=== PATIENT | male | born 1940 | race African-American/Black ===

== ENCOUNTER 2024-04-01 14:22 | Emergency (ER) | payer OTHER ==
--- OUTSIDE RECORDS SUMMARY | 2024-04-01 14:26 | XMS REPORT | Continuity of Care Document ---
Author Name Unknown Address [address] [place] [address] [facility] thconnect Address [address] [place] [address] Care Team Providers Care Project Director Name Role Phone Pcp, Patient Does Not Have A Primary Care Physic lucille Campaigns, Generic Provider Attending Clinician Unavailable Eun Faye DO Attending Clinician [phone] EUN FAYE Attending Clinician Unavailab EUN Coleman Admitting Clinician Unavailab lauren Payers Payer Name Policy Type Policy Number Effective Date Expirati on Date Source Allergies, Adverse Reactions, Alerts Allergy Name Allergy Type Status Severity Reaction(s) Onset Date Inactive Date Treating Clinician Comments Source NO KNOWN ALLERGIE S Drug Class Active [facility] Social History Social Habit Start Date Stop Date Quantity Comments Source Sexual orientation U [facility] Sex Assigned At 1940 00:00:00 1940 00:00:00 [facility] Smoking Status Start Date Stop Date Source Tobacco smoking consumption unknown [facility] Medications Ordered Medication Name Filled Medication Name Start Date Stop Date Current Medication? Ordering Clinician Indication Dosage Frequency Signature (SIG) Comments Components Source iopamidol (ISOVUE 370-500 mL) injection 85 mL 09-01 19:00: 00 09-01 19:00 :00 No [id number] 85mL 85 mL, Intravenou s, ONCE, 1 dose, On Sat09/02/23 at 1400, Routine [facility] moxifloxaci n 400 mg tablet 09-01 00:00: 00 09-07 04:59 :00 No [id number] 400mg Take 1 tablet by mouth in the morning for 5 days. [facility] Vital Signs Vital Name Observation Time Observation Value Jordy mccann Systolic blood pressure 2023-09-02 19:30:00 203 mm[Hg] [facility] Diastolic blood pressure 2023-09-02 19:30:00 85 mm[Hg] [facility] Heart rate 2023-09-02 19:30:00 88 /min [facility] Respiratory rate 2023-09-02 19:30:00 13 /min [facility] Oxygen saturation in Arterial blood by Pulse oximetry 2023-09-02 19:30:00 98 /min [facility] Body temperature 2023-09-02 16:12:00 36.61 Pat [facility] Procedures Procedure Date / Time Performed Performing Clinicia n Source CT THORAX W CONTRAST 2023-09-02 18:05:53 Jorge Faye [facility] COMP. METABOLIC PANEL (81916) 2023-09-02 16:54:00 Eun Faye [facility] CBC WITH DIFF 2023-09-02 16:54:00 Eun Faye [facility] NOTICE OF PRIVACY PRACTICES 2023-09-02 16:04:29 Doctor Unassigned, [place] [facility] CONSENT/REFUSAL FOR DIAGNOSIS AND TREATMENT 2023-09-02 16:02:54 Doctor Unassigned, [place] [facility] Encounters Start Date/Time End Date/Time Encounter Type Admission Type Attending Clinicians Care Facility Care Department Encounter ID Source 2023-09-11 00:00:00 2023-09-11 00:00:00 Letter (Out) Campaigns, Generic Provider [facility] 1..114 [id number] [facility] 2023-09-02 11:13:00 2023-09-02 14:38:00 Emergency Eun Faye [facility] [id number] [facility] 2023-09-02 11:13:00 2023-09-02 14:38:00 Emergency X EUN FAYE [facility] ERT [id number] [facility] Results Test Description Test Time Test Comments Results Result Comments Source CT THORAX W CONTRAST 19:09:34 ORDERING PHYSICIAN: EUN FAYE. HISTORY: hoarse and trouble swallowing. ?eval for mass TECHNIQUE: CT chest with intravenous contrast. ?CT was performed accordingto ALARA (As Low As Reasonably Achievable). COMPARISON: None. FINDINGS: Great Vessels: No aneurysm is present. There is diffuse moderateatherosclerotic vascular plaque Heart: Heart is borderline prominent in size. Severe coronary arterialcalcifications are present. There is no pericardial effusion. Lymphadenopathy: No pathologically enlarged mediastinal, hilar, or axillarylymph nodes. Lungs: There is moderate consolidation within the posterior and lateralbasal segments of the right lower lobe (image 76/4). The left lung isgrossly clear. Airways: Airways are clear. ?No bronchiectasis. Pleura: No pneumothorax or pleural effusion. Other: The thyroid enhances homogeneously. Visualized abdomen: Adrenal glands are normal. Osseous Structures: No suspicious lesions are identified. There is [facility]gynecomastia. [id number] 17:10:16* Test Item Value Reference Range Interpretation Comme nts WBC (test code = 6690-2) 9.27 4.20-10.70 RBC (test code = 789-8) 3.89 4.26-5.52 L HGB (test code = 718-7) 10.8 g/dL 12.2-16.4 L HCT (test code = 4544-3) 33.9 % 38.4-49.3 L MCV (test code = 787-2) 87.1 fL 81.7-95.6 MCH (test code = 785-6) 27.8 pg 26.1-32.7 MCHC (test code = 786-4) 31.9 g/dL 31.2-35.0 RDW-SD (test code = 42623-5) 49.3 fL 38.5-51.6 RDW-CV (test code = 788-0) 15.4 % 12.1-15.4 PLT (test code = 777-3) 134 150-328 L MPV (test code = 10998-5) 12.3 fL 9.8-13.0 NRBC/100 WBC (test code = 1973798369) 0.0 0.0-10.0 NRBC x10^3 (test code = 9203194134) See_Comment [Automated messa ge] The system which generated this result transmitted reference range: 10*3/?L. The reference range was not used to interpret this result as normal/abnormal. GRAN MAT (NEUT) % (test code = 770-8) 77.1 % IMM GRAN % (test code = 8239835959) 0.40 % LYMPH % (test code = 736-9) 14.1 % MONO % (test code = 5905-5) 6.9 % EOS % (test code = 713-8) 1.3 % BASO % (test code = 706-2) 0.2 % GRAN MAT x10^3(ANC) (test code = 0551494248) 7.14 10*3/uL 1.99-6.95 H IMM GRAN x10^3 (test code = 1920007963) 0.04 10*3/uL 0.00-0.06 LYMPH x10^3 (test code = 731-0) 1.31 10*3/uL 1.09-3.23 MONO x10^3 (test code = 742-7) 0.64 10*3/uL 0.36-1.02 EOS x10^3 (test code = 711-2) 0.12 10*3/uL 0.06-0.53 BASO x10^3 (test code = 704-7) 0.01-0.09 Lab Interpretation (test code = 81875-7) Abnormal [facility] Notes Date/Time Note Provider Source 2023-09-02 14:37:45 PT D/C home. GCS15, VS stable. Given D/C paperwork. Pt taken by w/c at time of discharge. Pt educated on med usage, follow up care, s/s worsening condition, need for hydration. Pt verbalized understanding. Pt taken to waiting room per request to await his sons arrival for transport home. Carlie Guthrie RN [facility] 2023-09-02 12:40:34 Error [facility] 2023-09-02 11:08:58 [place] [facility] [place] [facility] with difficulty swallowing, left AMA on Saturday because "they couldn't figure out what the problem was." Pt able to swallow saliva and tolerates soft food well, unable to tolerate solid foods. States that he had a tube put in his nose [place] the [facility] to take pictures. Pt's HR in triage 35-90, reports history of "irregular heart rate". [facility] 2023-09-02 11:03:00 [facility] Emergency Department Note Patient Name: Ulysses Jean Date of : 1940 83 year old male Treatment Room: [facility] Primary Care Physician: No primary care provider on file. 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 History of Present Illness: The patient presents from home for evaluation for trouble with swallowing over the past 1 week. He also complains of hoarseness. He reports is able to take in solids as well as soft foods but not hard foods like meat. No chest pain or pressure. No shortness of breath. He reports he [facility] the [facility] but they "did nothing for me". Therefore he decided to come here for evaluation. He is a former smoker. He is able to control his secretions and swallow them. Here for evaluation. Past Medical History/Immunizations: No past medical history on file. Tetanus received in last 5 years: Unknown Allergies: No Known Allergies Past Social History: Substance & Sexual Activity No substance use or sexual activity history on file. Past Surgical History: No past surgical history on file. Review of Systems: Review of Systems Constitutional: Negative for chills and fever. Respiratory: Negative for cough and shortness of breath. Cardiovascular: Negative for chest pain. Gastrointestinal: Negative for abdominal pain and vomiting. Genitourinary: Negative for dysuria. Musculoskeletal: Negative for arthralgias, neck pain and neck stiffness. Skin: Negative for wound. Neurological: Negative for dizziness. Psychiatric/Behavioral: Negative for agitation. Endocrine: Negative for goiter. Physical Exam: ED Triage Vitals [09/02/23 1112] Weight Actual or estimated Estimated by patient/family report Height BP (!) 189/78 Pulse 90 Resp 20 Temp 36.6 ?C (97.9 ?F) Temp source Oral SpO2 100 % Measured on Room air Physical Exam Vitals and nursing note reviewed. Constitutional: Appearance: Normal appearance. HENT: Head: Normocephalic and atraumatic. Cardiovascular: Rate and Rhythm: Normal rate. Pulses: Normal pulses. Pulmonary: Effort: Pulmonary effort is normal. No respiratory distress. Abdominal: General: There is no distension. Palpations: Abdomen is soft. Tenderness: There is no abdominal tenderness. There is no guarding. Musculoskeletal: General: Normal range of motion. Cervical back: Neck supple. Skin: General: Skin is warm. Neurological: General: No focal deficit present. Mental Status: He is alert and oriented to person, place, and time. Radiology: CT THORAX W CONTRAST Final Result ORDERING PHYSICIAN: EUN FAYE. HISTORY: hoarse and trouble swallowing. eval for mass TECHNIQUE: CT chest with intravenous contrast. CT was performed according to ALARA (As Low As Reasonably Achievable). COMPARISON: None. FINDINGS: Great Vessels: No aneurysm is present. There is diffuse moderate atherosclerotic vascular plaque Heart: Heart is borderline prominent in size. Severe coronary arterial calcifications are present. There is no pericardial effusion. Lymphadenopathy: No pathologically enlarged mediastinal, hilar, or axillary lymph nodes. Lungs: There is moderate consolidation within the posterior and lateral basal segments of the right lower lobe (image 76/4). The left lung is grossly clear. Airways: Airways are clear. No bronchiectasis. Pleura: No pneumothorax or pleural effusion. Other: The thyroid enhances homogeneously. Visualized abdomen: Adrenal glands are normal. Osseous Structures: No suspicious lesions are identified. There is mild gynecomastia. IMPRESSION Mild/moderate right lower lobe pneumonia and/or aspiration pneumonitis. No concerning mass. End of report. Lab Results: Lab Results CBC WITH DIFF - Abnormal Result Value Ref Range WBC 9.27 4.20 - 10.70 10*3/?L RBC 3.89 (*) 4.26 - 5.52 10*6/?L HGB 10.8 (*) 12.2 - 16.4 g/dL HCT 33.9 (*) 38.4 - 49.3 % MCV 87.1 81.7 - 95.6 fL MCH 27.8 26.1 - 32.7 pg MCHC 31.9 31.2 - 35.0 g/dL RDW-SD 49.3 38.5 - 51.6 fL RDW-CV 15.4 12.1 - 15.4 % PLT 134 (*) 150 - 328 10*3/?L MPV 12.3 9.8 - 13.0 fL NRBC/100 WBC 0.0 0.0 - 10.0 /100 WBCs NRBC x10 3 <0.01 10*3/?L GRAN MAT (NEUT) % 77.1 % IMM GRAN % 0.40 % LYMPH % 14.1 % MONO % 6.9 % EOS % 1.3 % BASO % 0.2 % GRAN MAT x10 3 (ANC) 7.14 (*) 1.99 - 6.95 10*3/uL IMM GRAN x10 3 0.04 0.00 - 0.06 10*3/uL LYMPH x10 3 1.31 1.09 - 3.23 10*3/uL MONO x10 3 0.64 0.36 - 1.02 10*3/uL EOS x10 3 0.12 0.06 - 0.53 10*3/uL BASO x10 3 <0.03 0.01 - 0.09 10*3/uL COMP. METABOLIC PANEL (27920) - Abnormal NA 140 135 - 145 mmol/L K 3.9 3.5 - 5.0 mmol/L CL 109 (*) 98 - 108 mmol/L CO2 TOTAL 22 (*) 23 - 31 mmol/L AGAP 9 2 - 16 BUN 25 (*) 7 - 23 mg/dL GLUCOSE 92 70 - 110 mg/dL CREATININE 1.34 (*) 0.60 - 1.25 mg/dL TOTAL BILI 1.3 (*) 0.1 - 1.1 mg/dL CALCIUM 9.5 8.6 - 10.6 mg/dL T PROTEIN 7.8 6.3 - 8.2 g/dL ALBUMIN 4.1 3.5 - 5.0 g/dL ALK PHOS 93 34 - 122 U/L ALTv 18 5 - 50 U/L AST(SGOT) 45 (*) 13 - 40 U/L eGFR 52.6 mL/min/1.73m2 EKG: If EKG completed, see Procedure Note. Orders and Treatments: Orders Placed This Encounter Procedures CT THORAX W CONTRAST CBC WITH DIFF COMP. METABOLIC PANEL (23945) Orders Placed This Encounter Medications iopamidol (ISOVUE 370-500 mL) injection 85 mL moxifloxacin 400 mg tablet First Provider Eval: ED Events Date/Time Event User Comments 09/02/23 1150 Medical Screening Begins EUN FAYE DO -- 09/02/23 1150 First Provider Evaluation EUN FAYE DO -- ED COURSE Diagnosis/Impression as of 09/02/23 1428 Hoarseness of voice Dysphagia, unspecified type Pneumonia of right lower lobe due to infectious organism Procedures: Procedures MDM: Medical Decision Making The patient presents from home for evaluation for difficulty with swallowing for the past 1 week. He also complains of hoarseness. He reports he is able to control his secretions including saliva as well as fluids and very soft foods. He reports solid foods like meat he is unable to swallow. He is a former smoker. [facility] so he left. Vital signs are stable in the ER. His lungs are clear bilaterally. His airway is patent. He does have a hoarse voice. Will obtain a CT of his chest and neck to evaluate possible tumor or mass been causing his symptoms. Final disposition pending. 1426 - the patient is doing well here in the ER. His laboratory studies are unremarkable. The CT of his chest shows a right lower lobe pneumonia but no tumor or mass causing his symptoms. Will treat the patient antibiotics. Recommend he follow-up with GI physician as an outpatient for possible scope to determine the cause of his difficulty with swallowing. He remained stable here in the ER and is okay for discharge home with PCP follow-up. Problems Addressed: Dysphagia, unspecified type: acute illness or injury Hoarseness of voice: acute illness or injury Pneumonia of right lower lobe due to infectious organism: acute illness or injury Amount and/or Complexity of Data Reviewed Labs: ordered. Decision-making details documented in ED Course. Radiology: ordered and independent interpretation performed. Decision-making details documented in ED Course. Risk Prescription drug management. Flowsheet Documentation: Scoring Tools: No data recorded Disposition/Condition: ED Disposition ED Disposition Disch - Home Condition Stable Comment -- Discharge Medications: Patient's Medications START taking these medications MOXIFLOXACIN 400 MG TABLET Take 1 tablet by mouth in the morning for 5 days. CONTINUE taking these medications which have NOT CHANGED No medications on file START taking Modified Medications as Prescribed No medications on file STOP taking these medications No medications on file Follow-up: Contact information for follow-up Pcp, Patient Does Not Have A Relationship: PCP - General [address] [place] [id number] Electronically signed by: Eun Faye DO 09/02/23 1428 T [facility]
[2024-04-01 15:06] LABS: Absolute Eosinophils 0.2 K/uL (0-0.5); Absolute Lymphocytes (CBC) 0.7 K/uL (0.7-4.9); Absolute Monocytes 0.5 K/uL (0.1-1.3); Absolute Neutrophil 6.4 K/uL (1.8-8.0); Basophils % 0.5 % (0-1.3); Eosinophils % 2.6 % (0-4.4); Hematocrit 20.3 % (39.6-49.0); Hemoglobin 6.7 g/dL (13.6-17.9); Lymphocytes % 8.6 % (15.3-44.8); MCH 27.5 pg (27.0-35.0); MCHC 33.1 g/dL (32.0-36.0); MPV 9.6 fL (7.6-11.3); Monocytes % 6.2 % (3.3-12.3); Neutrophils % 82.1 % (41.7-73.7); Nucleated Red Blood Cells % 0.1 % (0-0); Platelets 205 thou/uL (152-406); RBC Red Blood Cell Count 2.45 M/uL (4.33-5.43); Red Cell Distribution Width 16.5 % (12.1-15.2)
[2024-04-01 15:14] LABS: Anion Gap 10.5 mEq/L (5.0-15.0); Potassium 4.5 mEq/L (3.5-5.1); Troponin High Sensitivity 21.6 pg/mL (<58.9)
[2024-04-01 15:43] LABS: PT Prothrombin Time 14.4 SECONDS (9.4-12.5); PTT, Activated Partial Thromb 36.5 SECONDS (24.3-36.9); Protime INR 1.3
[2024-04-01] MEDS ORDERED: NA CHLORIDE 0.9% 250 ML ONE (15:48)
--- NOTE | 2024-04-01 18:19 | ER ---
Nurse's Notes [facility] Name: Ulysses Ashley Age: 83 yrs Sex: Male : 1940 Arrival Date: 04/01/2024 Time: 14:22 Bed 13 Private MD: Diagnosis: Anemia, unspecified Presentation: 04/01 14:50 Chief complaint: [facility] states[facility]. Denies ll1 weakness, fatigue. No N/V/D or fever. Coronavirus screen: Client denies travel out of the [place] in the last 14 days. At this time, the client does not indicate any symptoms associated with coronavirus-19. Ebola Screen: Patient denies travel to an Ebola-affected area in the 21 days before illness onset. Initial Sepsis Screen: Does the patient meet any 2 criteria? No. Patient's initial sepsis screen is negative. Does the patient have a suspected source of infection? No. Patient's initial sepsis screen is negative. Risk Assessment: Do you want to hurt yourself or someone else? Patient reports no desire to harm self or others. Onset of symptoms was April 01, 2024. 14:50 Method Of Arrival: Wheelchair ll1 14:50 Acuity: DONA 3 ll1 Triage Assessment: 14:50 General: Appears in no apparent distress. Behavior is calm, cooperative, appropriate ll1 for age, Reports needing a blood transfusion Denies fatigue. Neuro: No deficits noted. Cardiovascular: No deficits noted. Historical: - Allergies: 14:50 No Known Allergies; ll1 - PMHx: 14:50 Hypertensive disorder; ll1 14:54 Hypercholesterolemia; ll1 - PSHx: 14:54 stent in both legs; ll1 - Immunization history:: Adult Immunizations up to date. - Infectious Disease History:: Denies. - Social history:: Smoking status: Patient denies any tobacco usage or history of. Screenin:02 [facility] ED Fall Risk Assessment (Adult) History of falling in the last 3 months, mb9 including since admission No falls in past 3 months (0 pts) Confusion or Disorientation No (0 pts) Intoxicated or Sedated No (0 pts) Impaired Gait No (0 pts) Mobility Assist Device Used No (0 pt) Altered Elimination No (0 pt) Score/Fall Risk Level 0 - 2 = Low Risk Oriented to surroundings, Maintained a safe environment, Educated pt \T\ family on fall prevention, incl call for assistance when getting out of bed. Abuse screen: Denies threats or abuse. Nutritional screening: No deficits noted. Tuberculosis screening: No symptoms or risk factors identified. Assessment: 15:00 General: Appears in no apparent distress. Behavior is calm, cooperative. Pain: Denies mb9 pain. Neuro: Wynn Agitation-Sedation Scale (RASS): 0 - Alert and Calm Level of Consciousness is awake, alert, obeys commands, Oriented to person, place, time, situation, Appropriate for age. Cardiovascular: Patient's skin is warm and dry. Respiratory: Airway is patent Respiratory effort is even, unlabored, Respiratory pattern is regular, symmetrical, Breath sounds are clear bilaterally. GI: Abdomen is round non-distended, Bowel sounds present X 4 quads. GI: Patient currently denies bloody stool. : No signs and/or symptoms were reported regarding the genitourinary system. EENT: No signs and/or symptoms were reported regarding the EENT system. Derm: Skin is pink, warm \T\ dry. Musculoskeletal: Range of motion: intact in all extremities. 16:04 Reassessment: No changes from previously documented assessment. Patient and/or family mb9 updated on plan of care and expected duration. Pain level reassessed. Patient is alert, oriented x 3, equal unlabored respirations, skin warm/dry/pink. 16:45 Reassessment: Administration for 1st unit of RBC started. See transfusion record sheet mb9 for further information. 17:30 Reassessment: No changes from previously documented assessment. Patient and/or family mb9 updated on plan of care and expected duration. Pain level reassessed. Patient is alert, oriented x 3, equal unlabored respirations, skin warm/dry/pink. 18:19 Reassessment: D/C pending completion of unit of RBCs. mb9 18:42 Reassessment: No changes from previously documented assessment. Patient and/or family mb9 updated on plan of care and expected duration. Pain level reassessed. Patient is alert, oriented x 3, equal unlabored respirations, skin warm/dry/pink. Vital Signs: 14:50 BP 150 / 56; Pulse 72; Resp 18; Temp 97.3; Pulse Ox 97% on R/A; Weight 95.25 kg; Height ll1 6 ft. 1 in. ; Pain 0/10; 16:03 BP 127 / 50; Pulse 68; Resp 16; Pulse Ox 97% on R/A; mb9 16:45 BP 134 / 52; Pulse 70; Resp 16; Temp 97.8; Pulse Ox 97% on R/A; mb9 16:50 BP 147 / 57; Pulse 69; Resp 16; Temp 97.7; Pulse Ox 98% on R/A; mb9 16:55 BP 149 / 56; Pulse 67; Resp 16; Temp 97.7; Pulse Ox 97% on R/A; mb9 17:00 BP 146 / 56; Pulse 67; Resp 16; Temp 97.7; Pulse Ox 99% on R/A; mb9 17:45 BP 150 / 57; Pulse 68; Resp 16; Temp 97.8; Pulse Ox 98% on R/A; mb9 18:42 BP 155 / 75; Pulse 65; Resp 18; Pulse Ox 100% on R/A; mb9 14:50 Body Mass Index 27.71 (95.25 kg, 185.42 cm) ll1 14:50 Pain Scale: Adult ll1 16:45 baseline for 1st unit of RBCs bailee ED Course: 14:26 Patient arrived in ED. mr 14:26 Nader Hardy MD is Attending Physician. ec2 14:33 Vanessa Ramos, RN is Primary Nurse. mb9 14:37 Arm band placed on Patient placed in an exam room, on a stretcher. ll1 14:52 Triage completed. ll1 15:00 Initial lab(s) drawn, by me, sent to lab. EKG done, by ED staff, reviewed by Nader Hardy MD. Inserted saline lock: 20 gauge in right forearm, using aseptic technique. Blood collected. Flushed with 10 mL NS. 15:02 Bed in low position. Call light in reach. Side rails up X 1. Adult w/ patient. Client bailee placed on continuous cardiac and pulse oximetry monitoring. NIBP monitoring applied. teletypesetter monitor on. 15:32 Served as a cage maker during rectal exam. cm10 15:46 Consent for blood and/or blood product transfusion explained by staff, explained by bailee physician, signed by patient. 16:03 Provided Education on: press call light if needing anything. Door closed. Noise mb9 minimized. Warm blanket given. Pillow given. 18:43 IV discontinued, intact, bleeding controlled, No redness/swelling at site. Pressure mb9 dressing applied. Administered Medications: No medications were administered Medication: 15:02 VIS not applicable for this client. mb9 Outcome: 18:18 Discharge ordered by . ec2 18:43 Discharged to home via wheelchair, with family, mb9 18:43 Condition: stable 18:43 Discharge instructions given to patient, Instructed on discharge instructions, follow up and referral plans. Demonstrated understanding of instructions, follow-up care, 18:43 Patient left the ED. mb9 Signatures: Vanessa Akers, Reg Reg mr Linette Meza, RN RN ll1 Vanessa Rmaos RN RN mb9 Jeannie Goetz RN RN cm10 Nader Hardy MD MD ec2 Corrections: (The following items were deleted from the chart) 15:33 15:02 No provider procedures requiring assistance completed. mb9 cm10
--- NOTE | 2024-04-01 18:19 | EDPHYS ---
Physician Documentation [facility] Name: Ulysses Ashley Age: 83 yrs Sex: Male : 1940 Arrival Date: 04/01/2024 Time: 14:22 Bed 13 Private MD: ED Physician Nader Hardy HPI: 04/01 14:59 This 83 yrs old Black Male presents to ER via Wheelchair with complaints of Abnormal ec2 Lab Results. 14:59 Patient arrives today for evaluation of anemia. Patient with slowly decreasing blood ec2 counts over several months. Patient reports no lightheadedness, no chest pain or difficulty breathing. Patient was told to come to the ED due to concern for anemia and requiring blood transfusion. . Historical: - Allergies: 14:50 No Known Allergies; ll1 - PMHx: 14:50 Hypertensive disorder; ll1 14:54 Hypercholesterolemia; ll1 - PSHx: 14:54 stent in both legs; ll1 - Immunization history:: Adult Immunizations up to date. - Infectious Disease History:: Denies. - Social history:: Smoking status: Patient denies any tobacco usage or history of. ROS: 14:59 Constitutional: as per hpi ec2 Exam: 14:59 Constitutional: GEN: NAD Head: atraumatic Eyes: EOMI Ears: External ears are ec2 normal. CV: regular rate LUNGS: no respiratory distress ABD: non-distended SKIN: no evidence of rashes MSK: no evidence of trauma Vital Signs: 14:50 BP 150 / 56; Pulse 72; Resp 18; Temp 97.3; Pulse Ox 97% on R/A; Weight 95.25 kg; Height ll1 6 ft. 1 in. ; Pain 0/10; 16:03 BP 127 / 50; Pulse 68; Resp 16; Pulse Ox 97% on R/A; mb9 16:45 BP 134 / 52; Pulse 70; Resp 16; Temp 97.8; Pulse Ox 97% on R/A; mb9 16:50 BP 147 / 57; Pulse 69; Resp 16; Temp 97.7; Pulse Ox 98% on R/A; mb9 16:55 BP 149 / 56; Pulse 67; Resp 16; Temp 97.7; Pulse Ox 97% on R/A; mb9 17:00 BP 146 / 56; Pulse 67; Resp 16; Temp 97.7; Pulse Ox 99% on R/A; mb9 17:45 BP 150 / 57; Pulse 68; Resp 16; Temp 97.8; Pulse Ox 98% on R/A; mb9 18:42 BP 155 / 75; Pulse 65; Resp 18; Pulse Ox 100% on R/A; mb9 14:50 Body Mass Index 27.71 (95.25 kg, 185.42 cm) ll1 14:50 Pain Scale: Adult ll1 16:45 baseline for 1st unit of RBCs mb9 MDM: 14:59 ED course: EKG independently reviewed and interpreted by me, shows normal sinus rhythm, ec2 rate of 68, no acute ST segment elevation, nonactionable intervals, right bundle branch block noted.. 14:59 Data reviewed: vital signs. ED course: Patient arrives today for evaluation of anemia. ec2 Examination remarkable for well-appearing nontoxic hemodynamically stable individuals otherwise in no acute distress. Will obtain lab work For evaluation of anemia. . 15:34 ED course: Digital rectal examination performed under nurse supervision, Jeannie, ec2 shows no melena, soft brown stool noted. Will transfuse unit of blood given the patient's anemia. Patient updated guarded plan of care and agreeable.. 18:18 Patient medically screened. ec2 04/01 14:31 Order name: Basic Metabolic Panel; Complete Time: 15:20 ec2 04/01 14:31 Order name: CBC with Diff; Complete Time: 15:20 ec2 04/01 14:31 Order name: Troponin HS; Complete Time: 15:20 ec2 04/01 14:31 Order name: Type And Screen ec2 04/01 15:23 Order name: Protime (+INR); Complete Time: 15:44 EDMS 04/01 15:23 Order name: PTT, Activated Partial Thromb; Complete Time: 15:44 EDMS 04/01 15:28 Order name: Packed RBC Leukored EDMS 04/01 15:36 Order name: Bb Add On bd 04/01 16:06 Order name: ABO/RH no charge; Complete Time: 18:19 EDMS 04/01 14:31 Order name: EKG; Complete Time: 14:31 ec2 04/01 14:31 Order name: Cardiac monitoring; Complete Time: 14:33 ec2 04/01 14:31 Order name: EKG - Nurse/Tech; Complete Time: 15:03 ec2 04/01 14:31 Order name: IV Saline Lock; Complete Time: 15:03 ec2 04/01 14:31 Order name: Labs collected and sent; Complete Time: 15:03 ec2 04/01 14:31 Order name: O2 Per Protocol; Complete Time: 14:33 ec2 04/01 14:31 Order name: O2 Sat Monitoring; Complete Time: 14:33 ec2 04/01 15:00 Order name: Labs - recollect needed: collect abo/rh no charge; Complete Time: 15:15 bd 04/01 15:21 Order name: Transfuse; Complete Time: 17:00 ec2 04/01 15:21 Order name: Consent for Blood Transfusion; Complete Time: 15:43 ec2 04/01 15:21 Order name: IV Saline Lock; Complete Time: 15:24 ec2 Administered Medications: No medications were administered Disposition Summary: 04/01/24 18:18 Discharge Ordered Notes: Location: Home ec2 Condition: Stable ec2 Diagnosis - Anemia, unspecified ec2 Followup: ec2 - With: Private Physician - When: - Reason: Re-evaluation by your physician Discharge Instructions: - Discharge Summary Sheet ec2 - Anemia ec2 - Blood Transfusion, Adult ec2 Forms: - Medication Reconciliation Form ec2 - Antibiotic Education ec2 - Prescription Opioid Use ec2 - Patient Portal Instructions ec2 - Leadership Thank You Letter ec2 Critical care time excluding procedures: 15:34 Critical care time: Bedside Care: 30 minutes. Total time: 30 minutes ec2 Signatures: Dispatcher [employer] EDDeedee Gambino Lynsay, RN RN ll1 Vanessa Ramos RN RN mb9 Nader Hardy MD MD ec2 Corrections: (The following items were deleted from the chart) 14:32 14:31 BASIC METABOLIC PANEL+C.LAB.BRZ ordered. EDMS EDMS 14:32 14:31 CBC+H.LAB.BRZ ordered. EDMS EDMS 14:32 14:31 Troponin High Sensitivity+C.LAB.BRZ ordered. EDMS EDMS 14:32 14:31 TYPE AND SCREEN+BB.LAB.BRZ ordered. EDVA EDMS 15:00 14:59 Patient arrives today for evaluation of anemia. Patient with slowly decreasing ec2 blood counts over several months. Patient reports no lightheadedness, no chest pain or difficulty breathing. . ec2 15: 15:22 PACKED RBC LEUKORED+BB.LAB.BRZ ordered. EDVA EDMS 15:24 ABO/RH typing ordered. EDVA EDMS 15:24 Antibody Screen ordered. EDVA EDMS 18:18 14:59 ED course: EKG independently reviewed and interpreted by me, shows normal sinus ec2 rhythm, rate of 68, no acute ST segment ovation's, nonactionable intervals, right bundle branch block noted.. ec2
[2024-04-01 20:06] VITALS: TEMP 97.8
[2024-04-01 20:08] VITALS: BP 155/75; O2SAT 100
--- NOTE | 2024-04-02 16:54 | EKG ---
Test Date: 2024-04-01 Test Time: 14:56:17 Food And Nutrition Professor: MB MEASUREMENT RESULTS: Intervals: Rate: 68 AR: 284 QRSD: 160 QT: 472 QTc: 501 [place]: P: 94 AR: 284 QRS: -46 T: 47 INTERPRETIVE STATEMENTS: Sinus rhythm with 1st degree AV block Right bundle branch block Left anterior fascicular block Bifascicular block Septal infarct, age undetermined Abnormal ECG No previous ECG available for comparison Electronically Signed On 04-02-24 16:50:26 CDT by Yinka Tam
== END 2024-04-01 18:43 | disposition home or self-care (01) ==
LOC: ER 14:22
PROC: 30233N1 Transfusion of Nonautologous Red Blood Cells into Peripheral Vein, Percutaneous Approach (ICD-10-PCS; principal; 2024-04-01)
DX: D64.9 Anemia, unspecified (principal)
CPT/HCPCS: 93005; 85025; 80048; 36415; 86900; 86850; 85610; 86901; 85730; 86920; 84484; 36430; P9016; J7050

== ENCOUNTER 2025-03-15 08:58 | Emergency (ER) | payer OTHER ==
--- OUTSIDE RECORDS SUMMARY | 2025-03-15 09:02 | XMS REPORT | Continuity of Care Document ---
Author Name Unknown Address [address] [facility] [address] [place] [address] [facility] Address [address] [facility] [place] [address] Care Team Providers Care Green Hide Inspector Name Role Phone DENNIS WASHINGTON Primary Care Physician Unavail able MICHAEL MAGANA Attending Clinician Unavailable MICHAEL MAGANA Attending Clinician Unavailable Michael Magana MD Attending Clinician [phone] [facility], [facility] Provider Attending Clinician Unavailable Eun Faye DO Attending Clinician [phone] EUN FAYE Attending Clinician Unavailab MICHAEL Aguilar Admitting Clinician Unavailable EUN FAYE Admitting Clinician Unavailab lauren Paysheila Payer Name Policy Type Policy Number Effective Date Expirati on Date Source [facility] [id number] 1999-05-16 00:00:00 Allergies, Adverse Reactions, Alerts Allergy Name Allergy Type Status Severity Reaction(s) Onset Date Inactive Date Treating Clinician Comments Source NO KNOWN ALLERGIE S Drug Class Active [facility] Social History Social Habit Start Date Stop Date Quantity Comments Source Sexual orientation [facility] Sex assigned at 1940 00:00:00 1940 00:00:00 [facility] Smoking Status Start Date Stop Date Source Tobacco smoking consumption unknown [facility] Medications Ordered Medication Name Filled Medication Name Start Date Stop Date Current Medication? Ordering Clinician Indication Dosage Frequency Signature (SIG) Comments Components Source pantoprazol e (PROTONIX) 80 mg in NaCl 0.9% (NS) 500 mL infusion 2023-06 20:15: 00 05-26 20:14 :00 No 8mg/h [Order 1 Start] Name: pantoprazo le (PROTONIX) 80 mg in NaCl 0.9% (NS) 500 mL infusion Signed Summary: 8 mg/hr (50 mL/hr), IV Infusion, CONTINUOUS , Starting on Sat05/25/24 at 1415, For 24 hours [Order 1 End] [Order 2 Start] Name: pantoprazo le (PROTONIX) injection 40 mg Signed Summary: 40 mg, Slow IV Push, Q12H, First dose on Sat05/26/24 at 2000, Until Discontinu ed, Routine [Order 2 End] [facility] ondansetron (ZOFRAN (PF)) injection 4 mg 2023-06 20:15: 00 05-25 19:14 :00 No 4mg 4 mg, Slow IV Push, ONCE, 1 dose, On Sat05/25/24 at 1415, 2 mL [facility] pantoprazol e (PROTONIX) 80 mg in NaCl 0.9% (NS) 20 mL syringe 2023-06 20:00: 00 05-25 19:44 :00 No 80mg 80 mg, IV Push, ONCE, 1 dose, On Sat05/25/24 at 1400, Administer over 2 Minutes, 20 mL [facility] morpHINE (4 mg/mL) injection 4 mg 2023-06 19:15: 00 05-25 19:15 :00 No 4mg 4 mg, Slow IV Push, ONCE, 1 dose, On Sat05/25/24 at 1315, STAT [facility] iopamidol (ISOVUE 370-500 mL) injection 85 mL 09-01 19:00: 00 09-01 19:00 :00 No [id number] 85mL 85 mL, Intravenou s, ONCE, 1 dose, On Sat09/02/23 at 1400, Routine [facility] moxifloxaci n 400 mg tablet 09-01 00:00: 00 09-07 04:59 :00 No [id number] 400mg Take 1 tablet by mouth in the morning for 5 days. [facility] Vital Signs Vital Name Observation Time Observation Value Comments S ource Body temperature 2024-05-26 04:24:00 36.44 Pat [facility] Systolic blood pressure 2024-05-26 04:00:00 136 mm[Hg] [facility] Diastolic blood pressure 2024-05-26 04:00:00 95 mm[Hg] [facility] Heart rate 2024-05-26 04:00:00 76 /min [facility] Respiratory rate 2024-05-26 04:00:00 22 /min [facility] Oxygen saturation in Arterial blood by Pulse oximetry 2024-05-26 04:00:00 100 /min [facility] Body height 2024-05-25 18:13:00 186.7 cm [facility] Body weight 2024-05-25 18:13:00 95.255 kg [facility] BMI 2024-05-25 18:13:00 27.33 kg/m2 [facility] Systolic blood pressure 2023-09-02 19:30:00 203 mm[Hg] [facility] Diastolic blood pressure 2023-09-02 19:30:00 85 mm[Hg] [facility] Heart rate 2023-09-02 19:30:00 88 /min [facility] Respiratory rate 2023-09-02 19:30:00 13 /min [facility] Oxygen saturation in Arterial blood by Pulse oximetry 2023-09-02 19:30:00 98 /min [facility] Body temperature 2023-09-02 16:12:00 36.61 Pat [facility] Procedures Procedure Date / Time Performed Performing Clinician Source CBC WITH DIFF 2024-05-26 02:40:00 Michael Magana [facility] DUPLEX ARTERIAL LEG RIGHT - BY VASCULAR LAB 2024-05-25 20:51:01 Michael Magana [facility] TRANSFUSE PACKED RBC 2024-05-25 20:20:00 Cesar Magana [facility] PREPARE PACKED RBC 2024-05-25 19:56:47 Michael Magana [facility] ABORH CONFIRMATION (LAB ONLY) 2024-05-25 19:02:00 Michael Magana [facility] TROPONIN I 2024-05-25 18:21:00 Michael Magana [facility] COMP. METABOLIC PANEL ([id number]) 2024-05-25 18:21:00 Michael Magana [facility] CBC WITH DIFF 2024-05-25 18:21:00 Michael Magana [facility] PROTHROMBIN TIME / INR 2024-05-25 18:21:00 Nino Magana [facility] ACTIVATED PARTIAL THRMPLAS CHIDI 2024-05-25 18:21:00 Michael Magana [facility] HB ABO GROUPING 2024-05-25 18:21:00 [facility] 2024-05-25 18:21:00 Michael Magana [facility] HB ECG ROUTINE & RHYTHM STRIP 2024-05-25 18:17:50 Michael Magana [facility] CT THORAX W CONTRAST 2023-09-02 18:05:53 Jorge Faye [facility] COMP. METABOLIC PANEL ([id number]) 2023-09-02 16:54:00 Eun Faye [facility] CBC WITH DIFF 2023-09-02 16:54:00 Eun Faye [facility] NOTICE OF PRIVACY PRACTICES 2023-09-02 16:04:29 Doctor Unassigned, [facility] [facility] CONSENT/REFUSAL FOR DIAGNOSIS AND TREATMENT 2023-09-02 16:02:54 Doctor Unassigned, [facility] Encounters Start Date/Time End Date/Time Encounter Type Admission Type Attending [facility] Care Facility Care Department Encounter ID Source 2024-05-25 12:10:00 2024-05-25 22:31:00 Emergency X MICHAEL MAGANA [facility] ERT [id number] [facility] 2024-05-25 12:10:00 2024-05-25 22:31:00 Emergency Michael Magana [facility] [id number] [facility] 2023-09-11 00:00:00 2023-09-11 00:00:00 Letter (Out) Campaigns, Generic Provider [facility] [id number] [facility] 2023-09-02 11:13:00 2023-09-02 14:38:00 Emergency Eun Faye [facility] [id number] [facility] 2023-09-02 11:13:00 2023-09-02 14:38:00 Emergency X EUN FAYE [facility] ERT [id number] [facility] Results Test Description Test Time Test Comments Results Result Co mments Source [facility] RBC (in units), 1 Units 2024-05-25 19:56:47* Test Item Value Reference Range Interpretation Comme nts Cross Match Result (test code = 4409) Compatible ISBT Blood Type Code (test code = 758135) 7300 Unit Blood Type (test code = 4410) B Pos Unit Number (test code = 4411) [id number] Blood Expiration Date & Time (test code = 386139) [id number] Status Information (test code = 4412) Issued Product Identification (test code = 4413) Red Blood Cells Product Code (test code = 4414) [id number] Performed at [facility] B Laboratory Services - [facility] Blood [address] [place] [id number] Free: [phone] No. [id number] [facility] Confirmation (Lab Only)2024-05-25 19:19:00* Test Item Value Reference Range Interpretation Comme nts ABO & RH (test code = 20) B Positive [facility] TH[facility] W [id number] 19:09:34 ORDERING PHYSICIAN: EUN FAYE. HISTORY: hoarse [...] lower lobe (image 76/4). The left lung isgros sly clear. Airways: Airways are clear. ?No bronchiectasis. Pleura: No pneumothorax or pleural effusion. Other: The thyroid enhances homogeneously. Visualized abdomen: Adrenal glands are normal. Osseous Structures: No suspicious lesions are identified. There is mildgynecomastia.[facility]. METABOLIC PANEL ([id number])2023-09-02 17:39:41* Test Item Value Reference Range Interpretation Comme nts NA (test code = 2565455849) 140 mmol/L 135-145 K (test code = 4679949869) 3.9 mmol/L 3.5-5.0 CL (test code = 6900411568) 109 mmol/L 98-108 H CO2 TOTAL (test code = 6610637323) 22 mmol/L 23-31 L AGAP (test code = 4789710449) 9 2-16 BUN (test code = 7936085476) 25 mg/dL 7-23 H GLUCOSE (test code = 8492943393) 92 mg/dL 70-110 CREATININE (test code = 2160-0) 1.34 mg/dL 0.60-1.25 H TOTAL BILI (test code = 8291313611) 1.3 mg/dL 0.1-1.1 H CALCIUM (test code = 0976109542) 9.5 mg/dL 8.6-10.6 T PROTEIN (test code = 7605932441) 7.8 g/dL 6.3-8.2 ALBUMIN (test code = 4040740499) 4.1 g/dL 3.5-5.0 ALK PHOS (test code = 5654793137) 93 U/L 34-122 ALTv (test code = 1742-6) 18 U/L 5-50 AST(SGOT) (test code = 4200228232) 45 U/L 13-40 H eGFR (test code = 12864-6) 52.6 mL/min/1.73m2 CKD-EPI eGFR (2020). Assuming creatinine has been stable day-to-day for at least three months, the eGFR indicates Category G3a (45 - 59 mL/min/1.73 m2) Lab Interpretation (test code = 49643-3) Abnormal [facility] WITH [id number] 17:10:16* Test Item Value Reference Range Interpretation [...] 31.9 g/dL 31.2-35.0 RDW-SD (test code = 96897-0) 49.3 fL 38.5-51.6 RDW-CV (test code = 788-0) 15.4 % 12.1-15.4 PLT (test code = 777-3) 134 150-328 L MPV (test code = 83470-3) 12.3 fL 9.8-13.0 NRBC/100 WBC (test code = 4145048149) 0.0 0.0-10.0 NRBC x10^3 (test code = 9010581319) See_Comment [Automated messa ge] The system which generated this result transmitted reference range: 10*3/?L. The reference range was not used to interpret this result as normal/abnormal. GRAN MAT (NEUT) % (test code = 770-8) 77.1 % IMM GRAN % (test code = 0874352587) 0.40 % LYMPH % (test code = 736-9) 14.1 % MONO % (test code = 5905-5) 6.9 % EOS % (test code = 713-8) 1.3 % BASO % (test code = 706-2) 0.2 % GRAN MAT x10^3(ANC) (test code = 6974553684) 7.14 10*3/uL 1.99-6.95 H IMM GRAN x10^3 (test code = 4898107756) 0.04 10*3/uL 0.00-0.06 LYMPH x10^3 (test code = 731-0) 1.31 10*3/uL 1.09-3.23 MONO x10^3 (test code = 742-7) 0.64 10*3/uL 0.36-1.02 EOS x10^3 (test code = 711-2) 0.12 10*3/uL 0.06-0.53 BASO x10^3 (test code = 704-7) 0.01-0.09 Lab Interpretation (test code = 32291-1) Abnormal [facility] Notes Date/Time Note Provider Source 2024-05-25 22:27:04 Patient transferred to [facility] ER for diagnosis of near syncope, KVNG, gastrointestinal hemorrhage with melena, and symptomatic anemia. Patient agrees to transfer/admit plan and verbalized understanding of plan of care. Patient awake alert, oriented, resp reg unlabored, skin w/d, bilateral PIVs patent, infusion rate verified with EMS. No adverse reaction to medications given while in ED. Report given to [facility] ambulance EMS personnel. IE Thomas RN [facility] 2024-05-25 21:37:05 Report called to ALYSSA Contreras from [facility] ER. Admitting/transfer diagnosis, lab results and imaging results reviewed, and infusion rate verified. [facility] 2024-05-25 19:03:00 Assumed care of patient, received report from ALYSSA Hernandez. Pt A&OX4, Respirations even & unlabored. Skin W&D and normal color, PIV intact and infusion rate verified. Call feliciano in reach, NAD noted at present. Pt denies any concerns at this time. Pt awaiting bed placement. [facility] 2024-05-25 19:00:17 Report given to ALYSSA Alexander [facility] 2024-05-25 17:47:26 Spoke with daughter of pt. [facility] recommended per her request. Pt daughter refused [place]. ER provider notified. [facility] 2024-05-25 12:10:47 PT was brought in by EMS via stretcher. Pt was called by [facility] this am stating he needed to come to ER due to anemia. PT states he was getting in shower and felt dizzy and pt was hypotensive. Pt vitals got better before arrival to ER. No medication given [employer] [facility] 2023-09-02 14:37:45 PT D/C home. GCS15, VS stable. Given D/C paperwork. Pt taken by w/c at time of discharge. Pt educated on med usage, follow up care, s/s worsening condition, need for hydration. Pt verbalized understanding. Pt taken to waiting room per request to await his sons arrival for transport home. Carlie Guthrie RN [facility] 2023-09-02 12:40:[address] [facility] 2023-09-02 11:08:58 Pt was admitted to the [facility] last week with difficulty swallowing, left AMA on Saturday because "they couldn't figure out what the problem was." Pt able to swallow saliva and tolerates soft food well, unable to tolerate solid foods. States that he had a tube put in his nose at the [facility] to take pictures. Pt's HR in triage 35-90, reports history of "irregular heart rate". [facility] [employer] 2023-09-02 11:03:00 [facility] Emergency Department Note Patient Name: Carlos A Jean Date of : 1940 83 year old male Treatment Room: [place] [address] Primary Care Physician: No primary care provider on file. Patient Escorted by: Friend [6] Mode of Arrival: Personal means [1] EMS Treatment Prior to ED Arrival: [employer] treatment: None Travel and Exposure Screening: Symptoms [...] He reports he did go to the [facility] but they "did nothing for me". Therefore [...] 0.01 - 0.09 10*3/uL COMP. METABOLIC PANEL (70799) - Abnormal NA 140 135 - 145 [...] CONTRAST CBC WITH DIFF COMP. METABOLIC PANEL (33515) Orders Placed This Encounter Medications iopamidol (ISOVUE [...] former smoker. He was seen at the [facility] but reports they did nothing for him [...] Not Have A Relationship: PCP - General [address] [place] [id number] Electronically signed by: Eun Faye DO 09/02/[address] [facility]
[2025-03-15 10:02] LABS: Absolute Lymphocytes (CBC) 1.0 K/uL (0.7-4.9); Hematocrit 24.7 % (39.6-49.0); Hemoglobin 8.1 g/dL (13.6-17.9); MCH 27.2 pg (27.0-35.0); MCHC 32.9 g/dL (32.0-36.0); MCV 82.7 fL (80-100); MPV 10.0 fL (7.6-11.3); Nucleated RBC Absolute Count 0.0 (0-0); Nucleated Red Blood Cells % 0.2 % (0-0); RBC Red Blood Cell Count 2.99 M/uL (4.33-5.43); White Blood Count 5.10 thou/uL (4.3-10.9)
--- NOTE | 2025-03-15 10:02 | RAD REPORT ---
EXAMINATION: Abdomen Pelvis Wo Contrast CLINICAL INDICATION: Male, 84 years old.KVNG, eval for obstructive process TECHNIQUE: CT abdomen and pelvis was performed, without IV contrast, as per department protocol. Axia l, sagittal and coronal reconstructions were obtained. One or more of the following dose reduction techniques were used: Automated exposure control, adjustment of the mA and/or kV according to the pat ient size, and/or iterative reconstruction. Unless otherwise specified, incidental findings do not require dedicated imaging follow-up. [id number]. IV CONTRAST: Not administered. COMPARISON: Chest radiograph 12/14/2024 FINDINGS: The lack of intravenous contrast limits the sensitivity of this exam for evaluation of solid visceral organs, vascular structures, and retroperitoneum. LOWER CHEST: Bronchiectasis in the right lower lobe with consolidation. Significant pericardial effus ion. Mild coronary artery calcifications. UPPER GI: No significant abnormality. LIVER: No significant focal abnormality. GALLBLADDER/BILE DUCTS: No biliary ductal dilatation.? PANCREAS: No mass, ductal dilation, or madonna-pancreatic fluid. SPLEEN: Unremarkable. ADRENALS: No adrenal masses. KIDNEYS AND URETERS: No hydronephrosis.Limited evaluation for renal lesions in the absence of IV cont rast.No renal calculi.No ureteral calculi. ABDOMINAL AORTA AND OTHER VESSELS: Severe atherosclerotic changes. No aortic aneurysm. PERITONEUM: No abnormal free fluid. No free air. LYMPH NODES: No pathologic lymphadenopathy. ABDOMINAL WALL: Postprocedural changes in the right groin. Partially imaged bilateral femoral bypass grafts. SMALL BOWEL/COLON: Small bowel has normal course and caliber. No colonic wall thickening or pericolon ic inflammatory changes.Normal appendix. URINARY BLADDER: Nonspecific circumferential bladder wall thickening. REPRODUCTIVE ORGANS: No pathologic process. MUSCULOSKELETAL: Multilevel degenerative changes in the spine. No acute fracture. Advanced degenerati ve changes present in the right hip. Ankylosis of the sacroiliac joints. Degenerative changes are present in the spine. ADDITIONAL FINDINGS: None. IMPRESSION: No acute findings within the abdomen or pelvis. Specifically, no hydronephrosis identified Right lower lobe bronchiectasis with masslike peripheral consolidation. Bronchiectasis could be secon jannette to chronic aspiration. The consolidation in the right lower lobe could reflect either acute pneumonia or chronic consolidation. A neoplastic process considered less likely. While this was not s een on the prior portable chest radiograph, its location may have been obscured as the lung bases are not well assessed and no lateral radiograph was performed. Consider 3 month follow-up chest CT.
[2025-03-15 10:20] LABS: AST/SGOT 20 U/L (15-37); Albumin 3.5 g/dL (3.4-5.0); Albumin/Globulin Ratio 0.8 (1.1-1.8); Alkaline Phosphatase 91 U/L (45-117); Anion Gap 12.0 mEq/L (5.0-15.0); BUN Blood Urea Nitrogen 54 mg/dL (7-18); Bilirubin Indirect, Calculated 0.6 mg/dL (0.2-0.8); Globulin 4.4 g/dL (2.3-3.5); Glucose Level 97 mg/dL (74-106); Potassium 4.0 mEq/L (3.5-5.1)
[2025-03-15 10:22] LABS: ALT/SGPT < 14 U/L (16-61)
--- NOTE | 2025-03-15 11:39 | ER ---
Nurse's Notes [facility] [place] Name: Ulysses Ashley Age: 84 yrs Sex: Male : 1940 Arrival Date: 03/15/2025 Time: 08:58 Bed 7 Private MD: Diagnosis: Chronic kidney disease, unspecified;Lung mass Presentation: 03/15 09:17 Chief complaint: Patient states: Had routine lab work drawn on Saturday and [facility] further evaluation and treatment of kidney failure. Pt has no complaints at this time. Coronavirus screen: Client denies travel out of the [place] in the last 14 days. Ebola Screen: Patient denies exposure to infectious person. Patient denies travel to an Ebola-affected area in the 21 days before illness onset. Initial Sepsis Screen: Does the patient meet any 2 criteria? No. Patient's initial sepsis screen is negative. Does the patient have a suspected source of infection? No. Patient's initial sepsis screen is negative. Risk Assessment: Do you want to hurt yourself or someone else? Patient reports no desire to harm self or others. Onset of symptoms is unknown. 09:17 Method Of Arrival: Ambulatory 09:17 Acuity: DONA 3 ss Historical: - Allergies: 09:19 No Known Allergies; ss - PMHx: 09:19 Hypercholesterolemia; Hypertensive disorder; ss - PSHx: 09:19 stent in both legs; ss - Immunization history:: Adult Immunizations up to date. - Infectious Disease History:: Denies. - Social history:: Smoking status: Patient denies any tobacco usage or history of. - Family history:: not pertinent. - Hospitalizations: : No recent hospitalization is reported. Screenin:21 [facility] ED Fall Risk Assessment (Adult) History of falling in the last 3 months, dd2 including since admission No falls in past 3 months (0 pts) Confusion or Disorientation No (0 pts) Intoxicated or Sedated No (0 pts) Impaired Gait No (0 pts) Mobility Assist Device Used Yes (1 pt) Altered Elimination No (0 pt) Score/Fall Risk Level 0 - 2 = Low Risk Oriented to surroundings, Maintained a safe environment, Educated pt \T\ family on fall prevention, incl call for assistance when getting out of bed, Assessed \T\ reinforced patient's understanding of fall precautions, Hourly rounding (assess needs \T\ fall precautionary measures) done. Abuse screen: Denies threats or abuse. Denies injuries from another. Nutritional screening: No deficits noted. Tuberculosis screening: No symptoms or risk factors identified. Assessment: 09:21 General: Appears in no apparent distress. comfortable, Behavior is calm, cooperative, dd2 appropriate for age. Pain: Denies pain. Neuro: No deficits noted. Level of Consciousness is awake, alert, obeys commands, Oriented to person, place, time, situation, Appropriate for age. Cardiovascular: No deficits noted. Respiratory: No deficits noted. Airway is patent Respiratory effort is even, unlabored, Respiratory pattern is regular, symmetrical. GI: No deficits noted. No signs and/or symptoms were reported involving the gastrointestinal system. : No deficits noted. No signs and/or symptoms were reported regarding the genitourinary system. EENT: No deficits noted. No signs and/or symptoms were reported regarding the EENT system. Derm: No deficits noted. No signs and/or symptoms reported regarding the dermatologic system. Musculoskeletal: No deficits noted. No signs and/or symptoms reported regarding the musculoskeletal system. Circulation, motion, and sensation intact. Range of motion: intact in all extremities. Vital Signs: 09:17 BP 125 / 52; Pulse 74; Resp 16; Temp 97.4(TE); Pulse Ox 98% on R/A; Weight 95.25 kg; ss Height 6 ft. 1 in. ; Pain 0/10; 10:10 BP 121 / 57; Pulse 77; Resp 16; Pulse Ox 98% on R/A; dd2 11:50 BP 123 / 55; Pulse 73; Resp 16; Temp 97.9; Pulse Ox 98% on R/A; dd2 09:17 Body Mass Index 27.71 (95.25 kg, 185.42 cm) ss 09:17 Pain Scale: Adult ss [place] Coma Score: 09:21 Eye Response: spontaneous(4). Motor Response: obeys commands(6). Verbal Response: dd2 oriented(5). Total: 15. ED Course: 09:04 Patient arrived in ED. al6 09:06 Efren Fernandez MD is Attending Physician. rn 09:19 Triage completed. ss 09:19 Arm band placed on right wrist. ss 09:21 Patient has correct armband on for positive identification. Bed in low position. Call dd2 light in reach. Side rails up X 1. Client placed on continuous cardiac and pulse oximetry monitoring. NIBP monitoring applied. Door closed. Noise minimized. Warm blanket given. Pillow given. Verbal reassurance given. 09:21 No provider procedures requiring assistance completed. Patient did not have IV access dd2 during this emergency room visit. Patient maintains SpO2 saturation greater than 95% on room air. 09:41 Esau Skinner, RN is Primary Nurse. bp 09:44 CT Abd/Pelvis - Without Contrast In Process Unspecified. EDMS 09:54 Initial lab(s) drawn, by ED staff, sent to lab. bp 11:38 Asim Diaz MD is Referral Physician. rn 11:50 Provided Education on: D/C EDUCATION. dd2 Administered Medications: No medications were administered Medication: 09:21 VIS not applicable for this client. dd2 Outcome: 11:38 Discharge ordered by MD. rn 11:50 Discharged to home via wheelchair, with family, dd2 11:50 Condition: good 11:50 Discharge instructions given to patient, family, Instructed on discharge instructions, follow up and referral plans. Demonstrated understanding of instructions, follow-up care, 11:50 Patient left the ED. dd2 Signatures: Dispatcher [employer] EDMS Efren Fernandez MD MD rn Blanchard, Shelby, RN RN ss Peltier, Brian, FRANCISCO Quinones RN, RN RN dd2 Carmella Carroll al6
--- NOTE | 2025-03-15 11:39 | EDPHYS ---
Physician Documentation [facility] Name: Ulysses Ashley Age: 84 yrs Sex: Male : 1940 Arrival Date: 03/15/2025 Time: 08:58 Bed 7 Private MD: ED Physician Efren Fernandez HPI: 03/15 09:37 This 84 yrs old Black Male presents to ER via Ambulatory with complaints of Abnormal apple turner Results. 09:37 Patient reports sent from [facility] for abnormal blood test. They were obtained on rn Saturday and told today that he had kidney failure. Patient states feels fine, no urinary complaints, no trauma, no fever or chills. No hematuria. No prostate issues. No new medication.. Historical: - Allergies: 09:19 No Known Allergies; ss - PMHx: 09:19 Hypercholesterolemia; Hypertensive disorder; ss - PSHx: 09:19 stent in both legs; ss - Immunization history:: Adult Immunizations up to date. - Infectious Disease History:: Denies. - Social history:: Smoking status: Patient denies any tobacco usage or history of. - Family history:: not pertinent. - Hospitalizations: : No recent hospitalization is reported. ROS: 09:38 Constitutional: Negative for fever, chills, and weight loss, Cardiovascular: Negative rn for chest pain, palpitations, and edema, Respiratory: Negative for shortness of breath, cough, wheezing, and pleuritic chest pain, Abdomen/GI: Negative for abdominal pain, nausea, vomiting, diarrhea, and constipation, Back: Negative for injury and pain, : Negative for injury, bleeding, discharge, and swelling, MS/Extremity: Negative for injury and deformity, Skin: Negative for injury, rash, and discoloration, Neuro: Negative for headache, weakness, numbness, tingling, and seizure, Exam: 09:38 Constitutional: This is a well developed, well nourished patient who is awake, alert, rn and in no acute distress. Cardiovascular: Regular rate and rhythm. No pulse deficits. Respiratory: No increased work of breathing, no retractions or nasal flaring. Abdomen/GI: Soft, non-tender MS/ Extremity: Pulses equal, no cyanosis. Neuro: Awake and alert, GCS 15 Vital Signs: 09:17 BP 125 / 52; Pulse 74; Resp 16; Temp 97.4(TE); Pulse Ox 98% on R/A; Weight 95.25 kg; ss Height 6 ft. 1 in. ; Pain 0/10; 10:10 BP 121 / 57; Pulse 77; Resp 16; Pulse Ox 98% on R/A; dd2 11:50 BP 123 / 55; Pulse 73; Resp 16; Temp 97.9; Pulse Ox 98% on R/A; dd2 09:17 Body Mass Index 27.71 (95.25 kg, 185.42 cm) ss 09:17 Pain Scale: Adult ss [place] Coma Score: 09:21 Eye Response: spontaneous(4). Motor Response: obeys commands(6). Verbal Response: dd2 oriented(5). Total: 15. MDM: 09:06 Medical Screening Exam initiated rn 09:38 External Records Reviewed: Inpatient record: Patient seen in November 2024, transferred for rn anemia, possible GI bleed and showed renal insufficiency at that time with a creatinine of 3.3.. 11:34 Differential Diagnosis Chronic kidney disease, acute renal failure, malignancy, rn pneumonia, chronic aspiration, mass. Data reviewed: vital signs, nurses notes, lab test result(s), radiologic studies, CT scan, and as a result, I will admit patient. Consideration of Admission/Observation Escalation of care including admission/observation considered. Admission considered for further workup but patient declines, wants to go home. Care significantly affected by the following chronic conditions: Chronic Kidney Disease. Counseling: I had a detailed discussion with the patient and/or guardian regarding the historical points, exam findings, and any diagnostic results supporting the discharge/admit diagnosis, lab results, radiology results, the need for further work-up and treatment in the hospital. Special discussion: Based on the history and exam findings, there is no indication for further emergent testing or inpatient evaluation. I discussed with the patient/guardian the need to see the primary care provider for further evaluation of the symptoms. I discussed with the patient/guardian the need to see the crystallizer operator for further evaluation of the symptoms. ED course: I recommended [facility], still unclear if this is acute on chronic renal failure or just chronic renal failure. CT imaging shows masslike consolidation in the lung, could be malignancy versus infectious etiology versus chronic aspiration. Patient denies any cough or dyspnea or chest pain. Spouse reports history of swallowing difficulty. Could be signs of chronic aspiration and pneumonitis. Patient does not want to be admitted to the hospital, understands risks and benefits. Understands he needs to be reevaluated for his renal insufficiency as well as what this pulmonology finding can be. Needs to follow-up with PCP and pulmonology.. 11:34 Refusal of service: The patient/guardian displays adequate decision making capability rn and despite a detailed discussion of alternatives, benefits, risks, and consequences refuses: Admission to the hospital for further work-up and treatment. 11:34 Independent interpretation of the following test(s) in the Emergency Department CT rn Scan: My interpretation is CT abdomen pelvis images negative for pneumoperitoneum per my interpretation. Test considered but Not performed: CT: CT chest considered but not done, images on CT abdomen pelvis visualized the pulmonary finding. Historians other than the Patient: Spouse/Significant Other: Spouse gives significant portion of history including history of dysphagia. 03/15 09:29 Order name: CBC with Diff; Complete Time: 10: rn 03/15 09:29 Order name: Basic Metabolic Panel; Complete Time: 11: rn 03/15 09:29 Order name: LFT's; Complete Time: 11: rn 03/15 09:30 Order name: CT Abd/Pelvis - Without Contrast; Complete Time: 10: rn 03/15 09:29 Order name: IV Start; Complete Time: 09:54 rn Administered Medications: No medications were administered Disposition Summary: 03/15/25 11:38 Discharge Ordered Notes: Location: Home rn Problem: new rn Symptoms: have improved rn Condition: Stable rn Diagnosis - Chronic kidney disease, unspecified rn - Lung mass rn Followup: rn - With: Asim Diaz MD - When: 5 - 6 days - Reason: Recheck today's complaints, Re-evaluation by your physician Discharge Instructions: - Discharge Summary Sheet rn - Chronic Kidney Disease, Adult rn - Lung Mass rn Forms: - Medication Reconciliation Form rn - 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
[2025-03-15 11:56] VITALS: O2SAT 98
[2025-03-15 11:59] VITALS: BP 123/55; TEMP 97.9
== END 2025-03-15 11:50 | disposition home or self-care (01) ==
LOC: ER 08:58
DX: I12.9 Hypertensive chronic kidney disease with stage 1 through stage 4 chronic kidney disease, or unspecified chronic kidney disease (principal); N18.9 Chronic kidney disease, unspecified; R91.8 Other nonspecific abnormal finding of lung field
CPT/HCPCS: 36415; 74176; 80048; 80076; 85025; 99283